=== PATIENT | male | born 1970 | race African-American/Black ===

== ENCOUNTER 2021-03-16 12:08 | Emergency (ER) | payer SELFPAY ==
[2021-03-16 12:42] VITALS: BP 112/79; PULSE 71; TEMP 97.6; BMI 31.9
[2021-03-16 16:52] LABS: EPI CELLS 18 /uL (0-25.1); HYALINE CASTS 4 /uL (0-3.1); PH,URINE 7.5 (5.0-8.0); URINE APPEARANCE CLEAR; URINE BACTERIA 310 /uL (0-1359); URINE BILIRUBIN NEGATIVE (NEGATIVE); URINE COLOR YELLOW; URINE GLUCOSE (UA) NEGATIVE (NEGATIVE); URINE KETONE NEGATIVE (NEGATIVE); URINE LEUK ESTERASE 2+ (NEGATIVE); URINE NITRITE NEGATIVE (NEGATIVE); URINE PROTEIN NEGATIVE (NEGATIVE); URINE RBC 4 /uL (0-23.9); URINE WBC 159 /uL (0-25.8)
== END 2021-03-16 15:12 | disposition home or self-care (01) ==
LOC: JERFT 12:08
DX: Z20.2 Contact with and (suspected) exposure to infections with a predominantly sexual mode of transmission (principal)
CPT/HCPCS: 36415; 81003; 87086; 87491; 87591; 99283-25